=== PATIENT | female | born 1990 | race Caucasian/White ===

== ENCOUNTER 2016-06-02 19:04 | Emergency (ER) | payer MEDICAID ==
[2016-06-02 19:06] VITALS: TEMP 98.2
[2016-06-02 19:19] VITALS: BMI 29.2
--- NOTE | 2016-06-02 20:22 | EDPRACDOC ---
- General Information Chief Complaint: Flu-Like Symptoms Stated Complaint: N/V/D, FLU LIKE S/S Time Seen by Provider: 06/02/16 20:01 Information Source: Patient Mode Of Arrival: Car Home Medications: Home Medications No Home Medications 06/02/16 Allergies/Adverse Reactions: Allergies Allergy/AdvReac Type Severity Reaction Status Date / Time No Known Allergies Allergy Verified 06/02/16 19:15 - History of Present Illness Onset: one day HPI: PT PRESENTS TODAY WITH COUGH AND NASAL CONGESTION X 1 DAY. STATES SHE HAD 1 EPISODE OF VOMITING/DIARRHEA YESTERDAY, BOTH THOSE SYMPTOMS HAVE RESOLVED. DENIES FEVER. STATES THAT SHE IS 6 MONTHS AND WANTS TO BE SURE SHE IS OK. DENIES ABD PAIN, VAGINAL BLEEDING/DISCHARGE. Current Symptoms: Reports: Cough, Nasal Symptoms Shortness of Breath: None Cough: Reports: Non-productive Rhinorrhea: Reports: Clear Ear Symptoms: Reports: None Fever Severity/Quality: Reports: no fever Oral Intake: Normal Urinary Output: Normal Relevant History of: None Associated Signs & Symptoms:: Reports: Cough, Nasal Symptoms ED Past Medical History - History Reviewed Yes Nurses notes reviewed and agree except as marked - Patient Medical History Psychological History: Denies: Depression - Social Medical History Smoking Status: Never smoker EDM Review of Systems - Review of Systems ROS Negative Except as Marked: Yes All systems reviewed and were negative except as marked Constitutional: No Symptoms Reported Eyes: No Symptoms Reported Ears: No Symptoms Reported Throat: No Symptoms Reported Nose: Congestion Respiratory: Cough Cardiovascular: No Symptoms Reported Gastrointestinal: No Symptoms Reported Neurological: No Symptoms Reported Musculoskeletal: No Symptoms Reported Integumentary: No Symptoms Reported - Physical Exam Constitutional: Alert (Awake), No apparent distress Oriented to: Time, Person, Place Last recorded Vital Signs: Last Vital Signs Temp 98.2 F 06/02/16 19:06 Pulse 110 06/02/16 19:06 Resp 20 06/02/16 19:06 BP 130/77 06/02/16 19:06 Pulse Ox 96 06/02/16 19:06 Oxygen Pulse Oxygen Saturation 96 O2 Device Room Air Oxygen Flow Rate Fraction of Inspired Oxygen ( FIO2) - HEENT Head: Normal Eye Exam: Normal Oropharynx: Normal Tympanic Membrane: Normal ENT EAC: Normal Nose: No Symptoms Reported Neck: Normal, Denies Pain, Midline - Respiratory/Cardiovascular Respiratory: Normal - CTA Cardiovascular: Normal - GI Palpation: Normal Tenderness: Non tender - Musculoskeletal Back: Normal Extremities: Normal - Integumentary Skin: Normal Lymphatics: Normal - Neurologic Cerebellar: Normal Mood Description: Normal Thought: Coherent Perception: Normal Decision Time to Discharge: 20:23 - Departure Disposition: Home Condition: Good Final Diagnosis: Acute upper respiratory infection Instructions: Upper Respiratory Infection (ED) Education/Counseling Given To: Patient Education/Counseling Given Regarding: Diagnosis, Treatment, Follow Up Referrals: None,No Provider [Primary Care Provider] - One Week Prescriptions: No Action No Home Medications 0 NA DIR #0 info Additional Instructions: THIS IS LIKELY VIRAL. OTC CLARITIN, TYLENOL AND BENADRYL ARE ALL SAFE IN . IF YOU HAVE ANY FURTHER QUESTIONS, PLEASE CALL YOUR BOX [facility].
[2016-06-02 20:39] VITALS: BP 126/72; PULSE 104
== END 2016-06-02 20:29 | disposition home or self-care (01) ==
LOC: EDMC 19:04
DX: J06.9 Acute upper respiratory infection, unspecified (principal)
CPT/HCPCS: 99282